=== PATIENT | female | born 2000 | race Caucasian/White ===

== ENCOUNTER 2018-10-08 22:27 | Emergency (ER) | payer OTHER ==
[~2018-10-08] VITALS: Ht 170.2 cm; Wt 60.0 kg
--- NOTE | 2018-10-08 22:47 | NUR ---
TASK RN: Lesly ALEXANDER, at bedside to evaluate pt. Pt states that she began having itching/redness/hives to arms, thighs, back, abdomen, and face 3 days ago, worse today. Pt states that she has taken zyrtec and benadryl with no affect. Pt denies any new medications, lotions, or any other exposures.
[2018-10-08] MEDS ORDERED: FAMOTIDINE 20 MG TABLET ONE (22:56)
[2018-10-08] MEDS ORDERED: hydrOXyzine 50MG TABLET ONE (22:56)
[2018-10-08] MEDS ORDERED: FAMOTIDINE 20 MG TABLET PO ONE (23:00)
[2018-10-08] MEDS ORDERED: hydrOXyzine 50MG TABLET PO ONE (23:00)
--- NOTE | 2018-10-08 23:01 | NUR ---
Pt medicated per MAR.
--- NOTE | 2018-10-08 23:12 | NUR ---
TASK RN: Dr. Jaramillo at bedside to evaluate pt.
[2018-10-08 23:49] VITALS: BP 99/55
--- NOTE | 2018-10-08 23:49 | NUR ---
TASK RN: Patient/Caregiver given discharge instructions and they have confirmed that they understand the instructions. Patient ambulatory with steady gait.
== END 2018-10-08 23:51 | disposition home or self-care (01) ==
LOC: ED 23:45
DX: L50.0 Allergic urticaria (principal)
CPT/HCPCS: 99284; J7512; Q0177

== ENCOUNTER 2018-11-23 19:52 | Emergency (ER) | payer OTHER ==
[~2018-11-23] VITALS: Ht 170.2 cm; Wt 57.8 kg
[2018-11-23 19:56] VITALS: BP 103/66
--- NOTE | 2018-11-23 20:01 | NUR ---
PT HERE FOR SORE THROAT X 3 DAYS. PT REPORTS NOT PAIN IMPROVEMENT AND OCCASIONAL FEVER. PT REPORTS NO AIRWAY DISTRESS.
--- NOTE | 2018-11-23 21:18 | NUR ---
Patient/Caregiver given discharge instructions and they have confirmed that they understand the instructions. Patient ambulatory with steady gait.
== END 2018-11-23 21:20 | disposition home or self-care (01) ==
LOC: ED 21:14
DX: J02.0 Streptococcal pharyngitis (principal)
CPT/HCPCS: 87880; 99283

== ENCOUNTER 2020-02-03 09:43 | Emergency (ER) | payer SELFPAY ==
[~2020-02-03] VITALS: Ht 172.7 cm; Wt 58.4 kg
[2020-02-03] MEDS ORDERED: DIPHENHYDRAMINE 50 MG CAPSULE ONE (10:15)
[2020-02-03] MEDS ORDERED: FAMOTIDINE 20 MG TABLET ONE (10:16)
--- NOTE | 2020-02-03 10:25 | NUR ---
MEDS GIVEN PER ERP ORDER. PULSE OX IN PLACE. PT DENIES THROAT SWELLING OR SOB. CALL LIGHT WITHIN REACH, WARM BLANKET PROVIDED.
[2020-02-03] MEDS ORDERED: DIPHENHYDRAMINE 25 MG CAPSULE PO ONE (10:30)
[2020-02-03] MEDS ORDERED: FAMOTIDINE 20 MG TABLET PO ONE (10:30)
--- NOTE | 2020-02-03 11:06 | NUR ---
PT STATES RASH IMPROVED BUT IS NOTICING SWELLING TO BILATERAL HANDS. PT CONTINUES TO DENY SOB, THROAT SWELLING. VSS/UPDATED IN COMPUTER. PT FOR RECHECK.
[2020-02-03] MEDS ORDERED: EPINEPHRINE 1 MG/ML, 1ML ONE (11:15)
--- NOTE | 2020-02-03 11:24 | NUR ---
PT PLACED ON HEART MONITOR. EPI GIVEN PER ERP ORDER. PT UPDATED ON POC, CONTINUE TO MONITOR. CALL LIGHT WITHIN REACH.
[2020-02-03] MEDS ORDERED: EPINEPHRINE 1 MG/ML, 1ML IM ONE (11:30)
[2020-02-03 12:41] VITALS: BP 102/51
--- NOTE | 2020-02-03 12:44 | NUR ---
RASH AND SWELLING TO HANDS IMPROVED. PT D/C'D HOME.
== END 2020-02-03 12:46 | disposition home or self-care (01) ==
LOC: ED 10:12
DX: T78.49XA Other allergy, initial encounter (principal); L50.0 Allergic urticaria; X58.XXXA Exposure to other specified factors, initial encounter
CPT/HCPCS: 96372; 99284; J0171; J7512; Q0163

== ENCOUNTER 2021-01-22 14:29 | Emergency (ER) | payer OTHER ==
--- NOTE | 2021-01-22 15:10 | NUR ---
film flat inspector: attempted to call pt for triage, no answer in lobby
--- NOTE | 2021-01-22 15:43 | NUR ---
cleaning supervisor: attempted to call pt for triage, no answer in lobby
--- NOTE | 2021-01-22 16:46 | NUR ---
jaswinder RN: attempted to call pt for triage, no answer in lobby. unable to locate patient
== END 2021-01-22 16:48 | disposition left against medical advice (07) ==
LOC: ED 14:45
DX: M25.849 Other specified joint disorders, unspecified hand (principal); Z53.21 Procedure and treatment not carried out due to patient leaving prior to being seen by health care provider